=== PATIENT | male | born 1950 | race African-American/Black ===

== ENCOUNTER 2016-09-07 12:00 | Emergency (ER) | payer MEDICARE, MEDICAID ==
[~2016-09-07] VITALS: Ht 185.4 cm; Wt 104.6 kg
[~2016-09-07 12:00] MED LIST: CELEBREX; HYTRIN; NEURONTIN; VICODIN
[2016-09-07] MEDS ORDERED: BC POWDER (12:04)
[2016-09-07] MEDS ORDERED: GABAPENTIN (12:04)
[2016-09-07 14:50] VITALS: BP 159/93
[2016-11-12] MEDS ORDERED: AMLO10TA4 PO (13:18)
[2016-11-12] MEDS ORDERED: AMLO5TAB4 PO (13:18)
== END 2016-09-07 15:02 | disposition home or self-care (01) ==
LOC: ER 12:47
DX: B34.9 Viral infection, unspecified (principal); R03.0 Elevated blood-pressure reading, without diagnosis of hypertension; F17.211 Nicotine dependence, cigarettes, in remission
CPT/HCPCS: 71010; 99283

== ENCOUNTER 2016-11-10 18:46 | Inpatient (IN) | payer MEDICARE, MEDICAID ==
[~2016-11-10] VITALS: Ht 185.4 cm; Wt 100.2 kg
[~2016-11-10 18:46] MED LIST changes: +BC POWDER; -CELEBREX; +GABAPENTIN; -HYTRIN; -VICODIN
[2016-11-10] MEDS ORDERED: ONDANSETRON HCL 4MG/2ML VIAL IV STA (20:33)
[2016-11-10] MEDS ORDERED: MORPHINE SULFATE 4 MG/ML CPJ (NOT FOR IM USE) IV STA (20:33)
[2016-11-10 20:56] LABS: BASOPHILS % 0.7 % (0.0-2.0); EOSINOPHILS % 0.6 % (0.0-5.0); HEMOGLOBIN. 14.4 g/dL (14.0-18.0); LYMPHOCYTES % 20.6 % (20.0-50.0); MEAN CORPUSCULAR HEMOGLOBIN 31.4 pg (28.0-32.0); MEAN CORPUSCULAR VOLUME 89.5 fL (80.0-94.0); MEAN PLATELET VOLUME 9.4 fl (7.4-10.4); MONOCYTES % 5.8 % (2.0-8.0); NEUTROPHILS % 72.3 % (40.0-76.0); PLATELET 174 x1000/uL (130-400); RED BLOOD CELL COUNT 4.58 mill/uL (4.7-6.1); RED CELL DISTRIBUTION WIDTH 13.1 % (11.6-14.6)
[2016-11-10 20:58] LABS: INR 1.1; PROTHROMBIN TIME 11.3 sec (9.4-11.6)
[2016-11-10 21:05] LABS: CARBON DIOXIDE 27 mEq/L (21-32); CHLORIDE 106 mEq/L (98-107)
[2016-11-10 21:07] LABS: TROPONIN I < 0.02 ng/mL (0.00-0.04)
[2016-11-10] MEDS ORDERED: ASPIRIN 325MG EC TABLET PO ONE (22:00)
[2016-11-10] MEDS ORDERED: MORPHINE SULFATE 4 MG/ML CPJ (NOT FOR IM USE) IV ONE (22:30)
[2016-11-10 23:15] VITALS: BP 173/109
[2016-11-11] MEDS ORDERED: TERA10CA4 PO (00:29)
[2016-11-11] MEDS ORDERED: HYDR-519 PO (00:29)
[2016-11-11] MEDS ORDERED: GABA300C PO (00:29)
[2016-11-11] MEDS ORDERED: CLONIDINE 0.2MG TABLET PO PRN (01:30)
[2016-11-11] MEDS: HYDROCODONE/ACETAMINOPHEN 10/325MG TABLET PO PRN ×4 (01:40→20:57)
[2016-11-11 02:40] VITALS: BP 133/85
[2016-11-11 03:43] LABS: *AMPHETAMINES SCREEN URINE NEGATIVE (NEGATIVE); *BARBITURATES SCREEN URINE NEGATIVE (NEGATIVE); *BENZODIAZEPINES SCREEN URINE NEGATIVE (NEGATIVE); *COCAINE SCREEN URINE NEGATIVE (NEGATIVE); CANNABINOID URINE SCREEN NEGATIVE (NEGATIVE); METHADONE URINE SCREEN NEGATIVE (NEGATIVE); OPIATES URINE SCREEN PRESUMTIVE POSITIVE (NEGATIVE); PHENCYCLIDINE URINE SCREEN NEGATIVE (NEGATIVE)
[2016-11-11 04:00] VITALS: BP 126/81
[2016-11-11 06:43] LABS: HEMATOCRIT 40.9 % (42.0-52.0); HEMOGLOBIN 14.1 g/dL (14.0-18.0); MEAN CORPUSCULAR HEMOGLOBIN 31.1 pg (28.0-32.0); MEAN CORPUSCULAR VOLUME 90.4 fL (80.0-94.0); PLATELET 161 x1000/uL (130-400); RED BLOOD CELL COUNT 4.53 mill/uL (4.7-6.1); RED CELL DISTRIBUTION WIDTH 12.8 % (11.6-14.6)
[2016-11-11 07:09] LABS: CHLORIDE 102 mEq/L (98-107)
[2016-11-11 07:21] LABS: CARBON DIOXIDE 26 mEq/L (21-32); CREATINE KINASE 251 IU/L (39-308); HDL CHOLESTEROL 39 mg/dL (40-59); LDL CHOLESTEROL 75 mg/dL (5-100); TROPONIN I < 0.02 ng/mL (0.00-0.04)
[2016-11-11 07:34] VITALS: BP 143/87
[2016-11-11] MEDS: DOCUSATE SODIUM 100MG CAPSULE PO SCH ×2 (08:51→16:20)
[2016-11-11] MEDS: ENOXAPARIN 40MG/0.4ML SYR SUBCUT SCH (08:52)
[2016-11-11 11:48] VITALS: BP 124/76
[2016-11-11 13:55] LABS: CREATINE KINASE 168 IU/L (39-308); CREATINE KINASE MB FRACTION 1.1 ng/mL (0.5-3.6); TROPONIN I < 0.02 ng/mL (0.00-0.04)
[2016-11-11] MEDS ORDERED: IBUPROFEN 600MG TABLET PO PRN (14:30)
[2016-11-11] MEDS: LACTULOSE 20G/30ML UDC PO PRN ×2 (15:07→23:26)
[2016-11-11 16:00] VITALS: BP 133/84
[2016-11-11] MEDS: ACETAMINOPHEN 325MG TABLET PO PRN ×2 (16:25→23:26)
[2016-11-11] MEDS ORDERED: MEDICATION NOT ON FORMULARY EA (Terazosin Hcl 10 MG) PO SCH (17:00)
[2016-11-11 20:00] VITALS: BP 124/87
[2016-11-11] MEDS: TERAZOSIN HCL 5MG CAPSULE PO SCH (20:57)
[2016-11-12 00:22] VITALS: BP 135/84
[2016-11-12] MEDS: HYDROCODONE/ACETAMINOPHEN 10/325MG TABLET PO PRN ×4 (03:30→23:04)
[2016-11-12 04:00] VITALS: BP 131/82
[2016-11-12 07:04] LABS: BASOPHILS % 0.4 % (0.0-2.0); EOSINOPHILS % 0.1 % (0.0-5.0); HEMOGLOBIN. 14.7 g/dL (14.0-18.0); LYMPHOCYTES % 14.5 % (20.0-50.0); MEAN CORPUSCULAR HEMOGLOBIN 31.4 pg (28.0-32.0); MEAN CORPUSCULAR VOLUME 89.8 fL (80.0-94.0); MEAN PLATELET VOLUME 10.3 fl (7.4-10.4); MONOCYTES % 9.6 % (2.0-8.0); NEUTROPHILS % 75.4 % (40.0-76.0); PLATELET 157 x1000/uL (130-400); RED BLOOD CELL COUNT 4.68 mill/uL (4.7-6.1)
[2016-11-12 07:13] LABS: HEPATITIS B SURFACE ANTIGEN NEGATIVE
[2016-11-12 07:41] LABS: HEPATITIS B CORE AB IGM NEGATIVE
[2016-11-12 07:43] LABS: HEPATITIS A AB IGM NEGATIVE (NEGATIVE)
[2016-11-12 07:52] LABS: CARBON DIOXIDE 26 mEq/L (21-32); CHLORIDE 98 mEq/L (98-107)
[2016-11-12 08:00] VITALS: BP 129/66
[2016-11-12] MEDS: TERAZOSIN HCL 5MG CAPSULE PO SCH ×2 (08:26→20:39)
[2016-11-12] MEDS: DOCUSATE SODIUM 100MG CAPSULE PO SCH ×2 (08:27→16:26)
[2016-11-12] MEDS: ENOXAPARIN 40MG/0.4ML SYR SUBCUT SCH (08:28)
[2016-11-12] MEDS: LACTULOSE 20G/30ML UDC PO PRN (09:58)
[2016-11-12 12:00] VITALS: BP 98/63
[2016-11-12] MEDS ORDERED: AMLO10TA4 PO (13:18)
[2016-11-12] MEDS ORDERED: AMLO5TAB4 PO (13:18)
[2016-11-12] MEDS ORDERED: POTASSIUM CHLORIDE 20MEQ TABLET SR PO NR (13:30)
[2016-11-12] MEDS: ACETAMINOPHEN 325MG TABLET PO PRN (14:42)
[2016-11-12 16:00] VITALS: BP 117/66
[2016-11-12] MEDS: MORPHINE SULFATE 4 MG/ML CPJ (NOT FOR IM USE) IV PRN (18:29)
[2016-11-12 20:00] VITALS: BP 131/78
[2016-11-12] MEDS: BISACODYL 10MG SUPP PR PRN (20:39)
[2016-11-13] VITALS: BP 127/73
[2016-11-13] MEDS: MORPHINE SULFATE 4 MG/ML CPJ (NOT FOR IM USE) IV PRN ×2 (00:24→06:16)
[2016-11-13 05:00] VITALS: BP 118/81
[2016-11-13 08:00] VITALS: BP 118/74
[2016-11-13] MEDS: DOCUSATE SODIUM 100MG CAPSULE PO SCH ×2 (09:35→15:53)
[2016-11-13] MEDS: ENOXAPARIN 40MG/0.4ML SYR SUBCUT SCH (09:35)
[2016-11-13] MEDS: TERAZOSIN HCL 5MG CAPSULE PO SCH ×2 (09:35→20:31)
[2016-11-13] MEDS: HYDROCODONE/ACETAMINOPHEN 10/325MG TABLET PO PRN (10:43)
[2016-11-13 12:00] VITALS: BP 111/60
[2016-11-13] MEDS: MORPHINE SULFATE 2 MG/ML CPJ (NOT FOR IM USE) IV PRN ×3 (12:05→22:34)
[2016-11-13] MEDS: LACTULOSE 20G/30ML UDC PO PRN (13:00)
[2016-11-13] MEDS ORDERED: SODIUM CHLORIDE 0.9% 10ML VIAL ONE (13:40)
[2016-11-13] MEDS ORDERED: IOHEXOL-300 100 ML BOTTLE ONE (13:40)
[2016-11-13] MEDS ORDERED: MORPHINE SULFATE 4 MG/ML CPJ (NOT FOR IM USE) IV PRN (15:45)
[2016-11-13 16:00] VITALS: BP 109/71
[2016-11-13 20:00] VITALS: BP 120/82
[2016-11-13] MEDS: ACETAMINOPHEN 325MG TABLET PO PRN (22:28)
[2016-11-14] VITALS: BP 109/81
[2016-11-14] MEDS: MORPHINE SULFATE 2 MG/ML CPJ (NOT FOR IM USE) IV PRN ×5 (03:16→21:14)
[2016-11-14 04:00] VITALS: BP 119/84
[2016-11-14] MEDS: HYDROCODONE/ACETAMINOPHEN 10/325MG TABLET PO PRN (05:27)
[2016-11-14 05:44] LABS: CARBON DIOXIDE 32 mEq/L (21-32); CHLORIDE 92 mEq/L (98-107)
[2016-11-14 05:56] LABS: BASOPHILS % 0.2 % (0.0-2.0); EOSINOPHILS % 0.1 % (0.0-5.0); HEMATOCRIT. 41.6 % (42.0-52.0); HEMOGLOBIN. 14.6 g/dL (14.0-18.0); LYMPHOCYTES % 13.4 % (20.0-50.0); MEAN CORPUSCULAR HEMOGLOBIN 31.4 pg (28.0-32.0); MEAN CORPUSCULAR VOLUME 89.6 fL (80.0-94.0); MEAN PLATELET VOLUME 10.3 fl (7.4-10.4); MONOCYTES % 8.4 % (2.0-8.0); NEUTROPHILS % 77.9 % (40.0-76.0); PLATELET 171 x1000/uL (130-400); RED BLOOD CELL COUNT 4.64 mill/uL (4.7-6.1); RED CELL DISTRIBUTION WIDTH 12.7 % (11.6-14.6)
[2016-11-14 08:06] VITALS: BP 106/71
[2016-11-14] MEDS: ENOXAPARIN 40MG/0.4ML SYR SUBCUT SCH (08:39)
[2016-11-14] MEDS: DOCUSATE SODIUM 100MG CAPSULE PO SCH ×2 (08:40→16:32)
[2016-11-14] MEDS: ACETAMINOPHEN 325MG TABLET PO PRN ×3 (08:41→21:01)
[2016-11-14] MEDS: TERAZOSIN HCL 5MG CAPSULE PO SCH ×2 (08:43→21:01)
[2016-11-14 12:00] VITALS: BP 129/79
[2016-11-14] MEDS ORDERED: POTASSIUM CHLORIDE 20MEQ TABLET SR PO SCH (13:00)
[2016-11-14 16:00] VITALS: BP 121/77
[2016-11-14] MEDS: PIPERACILLIN/TAZ 3.375G PREMIX 50 ML IV SCH (18:42)
[2016-11-14 20:56] VITALS: BP 122/72
[2016-11-14 21:15] LABS: AMYLASE 41 IU/L (25-115)
[2016-11-15 00:04] VITALS: BP 119/78
[2016-11-15] MEDS: HYDROCODONE/ACETAMINOPHEN 10/325MG TABLET PO PRN (00:06)
[2016-11-15] MEDS: SODIUM CHL 0.45% + KCL 20MEQ/L 1,000 ML IV SCH ×3 (00:20→15:00)
[2016-11-15] MEDS: MORPHINE SULFATE 2 MG/ML CPJ (NOT FOR IM USE) IV PRN ×3 (01:19→11:59)
[2016-11-15] MEDS: PIPERACILLIN/TAZ 3.375G PREMIX 50 ML IV SCH ×3 (02:00→17:54)
[2016-11-15] MEDS: ACETAMINOPHEN 325MG TABLET PO PRN (05:41)
[2016-11-15 05:49] VITALS: BP 117/63
[2016-11-15 06:02] LABS: BASOPHILS % 0.2 % (0.0-2.0); EOSINOPHILS % 0.3 % (0.0-5.0); HEMATOCRIT. 40.3 % (42.0-52.0); HEMOGLOBIN. 14.2 g/dL (14.0-18.0); LYMPHOCYTES % 16.7 % (20.0-50.0); MEAN CORPUSCULAR HEMOGLOBIN 31.5 pg (28.0-32.0); MEAN CORPUSCULAR VOLUME 89.1 fL (80.0-94.0); MONOCYTES % 9.6 % (2.0-8.0); NEUTROPHILS % 73.2 % (40.0-76.0); PLATELET 189 x1000/uL (130-400); RED BLOOD CELL COUNT 4.52 mill/uL (4.7-6.1); RED CELL DISTRIBUTION WIDTH 12.4 % (11.6-14.6)
[2016-11-15 06:17] LABS: AMYLASE 51 IU/L (25-115); CARBON DIOXIDE 27 mEq/L (21-32); CHLORIDE 93 mEq/L (98-107)
[2016-11-15] MEDS: ENOXAPARIN 40MG/0.4ML SYR SUBCUT SCH (09:00)
[2016-11-15] MEDS: TERAZOSIN HCL 5MG CAPSULE PO SCH ×2 (09:00→21:00)
[2016-11-15] MEDS: DOCUSATE SODIUM 100MG CAPSULE PO SCH ×2 (09:00→17:00)
[2016-11-15 12:00] VITALS: BP 117/69
[2016-11-15] MEDS ORDERED: LIDOCAINE HCL 1% 20ML VIAL (Pyxis) INJ ONE ×2 (14:44→18:08)
[2016-11-15] MEDS ORDERED: BUPIVACAINE HCL/PF 0.5% (5MG/ML) 10ML ONE (14:44)
[2016-11-15] MEDS ORDERED: SKIN ADHESIVE 0.7 GM EA TOP ONE ×2 (14:45→14:59)
[2016-11-15 15:30] VITALS: BP 118/70
[2016-11-15] MEDS ORDERED: MIDAZOLAM HCL 2 MG/2 ML VIAL ONE (18:03)
[2016-11-15] MEDS ORDERED: FENTANYL CITRATE/PF 50MCG/ML 2ML VIAL ONE ×3 (18:07→21:11)
[2016-11-15] MEDS ORDERED: SUCCINYLCHOLINE CHLORIDE 200MG/10ML VIAL IV ONE (18:08)
[2016-11-15] MEDS ORDERED: ROCURONIUM BROMIDE 10MG/ML VIAL 5ML IV ONE (18:08)
[2016-11-15] MEDS ORDERED: PROPOFOL 200MG/20ML VIAL IV ONE (18:08)
[2016-11-15] MEDS ORDERED: ONDANSETRON HCL 4MG/2ML VIAL ONE (18:33)
[2016-11-15] MEDS ORDERED: METOCLOPRAMIDE HCL 10MG/2ML VIAL ONE (18:33)
[2016-11-15] MEDS ORDERED: DEXAMETHASONE 4MG/ML 1ML VIAL ONE (18:33)
[2016-11-15] MEDS ORDERED: SODIUM CHLORIDE 0.9% 1,000 ML IV SCH (19:14)
[2016-11-15] MEDS ORDERED: ONDANSETRON HCL 4MG/2ML VIAL IV PRN (19:15)
[2016-11-15] MEDS: HYDROMORPHONE HCL/PF 2MG/ML CPJ IV PRN ×3 (21:47→22:13)
[2016-11-16] MEDS: HYDROCODONE/ACETAMINOPHEN 10/325MG TABLET PO PRN (00:01)
[2016-11-16] MEDS: SODIUM CHL 0.45% + KCL 20MEQ/L 1,000 ML IV SCH ×5 (00:05→20:22)
[2016-11-16] MEDS: HYDROMORPHONE HCL/PF 2MG/ML CPJ IV PRN ×10 (00:08→22:36)
[2016-11-16] MEDS: PIPERACILLIN/TAZ 3.375G PREMIX 50 ML IV SCH ×3 (02:07→17:31)
[2016-11-16 04:00] VITALS: BP 111/76
[2016-11-16] MEDS: ACETAMINOPHEN 325MG TABLET PO PRN (04:57)
[2016-11-16 05:17] LABS: HEMATOCRIT. 38.2 % (42.0-52.0); HEMOGLOBIN. 13.4 g/dL (14.0-18.0); MEAN CORPUSCULAR HEMOGLOBIN 31.3 pg (28.0-32.0); MEAN CORPUSCULAR VOLUME 89.4 fL (80.0-94.0); MEAN PLATELET VOLUME 9.9 fl (7.4-10.4); PLATELET 216 x1000/uL (130-400); RED BLOOD CELL COUNT 4.28 mill/uL (4.7-6.1); RED CELL DISTRIBUTION WIDTH 12.5 % (11.6-14.6)
[2016-11-16 06:02] LABS: CHLORIDE 96 mEq/L (98-107)
[2016-11-16 06:20] LABS: CARBON DIOXIDE 27 mEq/L (21-32)
[2016-11-16 08:00] VITALS: BP 119/77
[2016-11-16] MEDS: TERAZOSIN HCL 5MG CAPSULE PO SCH ×2 (08:36→20:24)
[2016-11-16] MEDS: ENOXAPARIN 40MG/0.4ML SYR SUBCUT SCH (08:36)
[2016-11-16] MEDS: DOCUSATE SODIUM 100MG CAPSULE PO SCH ×2 (08:36→17:31)
[2016-11-16 11:07] VITALS: BP 112/74
[2016-11-16 15:31] VITALS: BP 99/65
[2016-11-16] MEDS: NEOMY SULF/BACITRAC ZN/POLY OINT 28GM TOP SCH ×2 (17:31→20:22)
[2016-11-16] MEDS: LACTULOSE 20G/30ML UDC PO PRN (18:05)
[2016-11-16 20:00] VITALS: BP 119/80
[2016-11-16 22:52] LABS: PLATELET ESTIMATE NORMAL
[2016-11-17] VITALS: BP 108/79
[2016-11-17] MEDS: HYDROMORPHONE HCL/PF 2MG/ML CPJ IV PRN ×5 (01:19→13:05)
[2016-11-17] MEDS: BISACODYL 10MG SUPP PR PRN (02:12)
[2016-11-17] MEDS: PIPERACILLIN/TAZ 3.375G PREMIX 50 ML IV SCH ×2 (02:12→10:52)
[2016-11-17 04:00] VITALS: BP 113/77
[2016-11-17] MEDS: SODIUM CHL 0.45% + KCL 20MEQ/L 1,000 ML IV SCH (05:55)
[2016-11-17 06:36] LABS: BASOPHILS % 0.5 % (0.0-2.0); HEMATOCRIT. 36.4 % (42.0-52.0); HEMOGLOBIN. 12.8 g/dL (14.0-18.0); LYMPHOCYTES % 26.7 % (20.0-50.0); MEAN CORPUSCULAR HEMOGLOBIN 31.7 pg (28.0-32.0); MEAN CORPUSCULAR VOLUME 89.8 fL (80.0-94.0); MEAN PLATELET VOLUME 9.6 fl (7.4-10.4); MONOCYTES % 10.3 % (2.0-8.0); NEUTROPHILS % 61.5 % (40.0-76.0); PLATELET 218 x1000/uL (130-400); RED BLOOD CELL COUNT 4.06 mill/uL (4.7-6.1); RED CELL DISTRIBUTION WIDTH 12.7 % (11.6-14.6)
[2016-11-17 08:00] VITALS: BP 130/84
[2016-11-17 08:04] LABS: CARBON DIOXIDE 26 mEq/L (21-32); CHLORIDE 98 mEq/L (98-107)
[2016-11-17] MEDS: ENOXAPARIN 40MG/0.4ML SYR SUBCUT SCH (08:14)
[2016-11-17] MEDS: TERAZOSIN HCL 5MG CAPSULE PO SCH (08:15)
[2016-11-17] MEDS: DOCUSATE SODIUM 100MG CAPSULE PO SCH (08:16)
[2016-11-17] MEDS: LACTULOSE 20G/30ML UDC PO PRN (08:16)
[2016-11-17] MEDS: NEOMY SULF/BACITRAC ZN/POLY OINT 28GM TOP SCH (08:18)
[2016-11-17 11:36] VITALS: BP 141/71
[2016-11-17 12:02] VITALS: BP 141/71
[2016-11-17 13:05] VITALS: BP 141/71
== END 2016-11-17 15:15 | disposition home or self-care (01) | DRG 418 ==
LOC: ER 20:42 → 7WST 22:09 → EDBEDREQTM 22:15 → EDBEDREQ 22:15
PROVIDERS: ADMIT Internal Medicine; ATTEND Internal Medicine
PROC: 0WQF0ZZ Repair Abdominal Wall, Open Approach (ICD-10-PCS; 2016-11-15)
PROC: 0FT44ZZ Resection of Gallbladder, Percutaneous Endoscopic Approach (ICD-10-PCS; principal; 2016-11-15 16:30)
DX: K80.12 Calculus of gallbladder with acute and chronic cholecystitis without obstruction (principal); I96 Gangrene, not elsewhere classified; K42.0 Umbilical hernia with obstruction, without gangrene; E87.6 Hypokalemia; B19.20 Unspecified viral hepatitis C without hepatic coma; M79.1 Myalgia; I25.10 Atherosclerotic heart disease of native coronary artery without angina pectoris; M47.9 Spondylosis, unspecified; I10 Essential (primary) hypertension; Z87.891 Personal history of nicotine dependence; Z79.899 Other long term (current) drug therapy; Z79.1 Long term (current) use of non-steroidal anti-inflammatories (NSAID)
CPT/HCPCS: 36415; 71010; 71275; 73706; 76705; 78227; 80048; 80053; 80061; 80076; 80305; 82150; 82550; 82553; 82962; 83690; 83880; 84484; 85025; 85027; 85610; 86705; 86709; 86803; 87040; 87077; 87086; 87186; 87340; 88304; 93005; 93306; 93970; 96374; 96375; 96376; 99285; A4216; A9537; C1893; J0330; J1100; J1170; J1650; J2250; J2270; J2405; J2543; J2704; J2765; J3010; J3480; J3490; J7030; J7040; Q9967